=== PATIENT | male | born 1990 | race Caucasian/White ===

== ENCOUNTER 2016-04-11 17:16 | Inpatient (IN) | payer SELFPAY ==
[~2016-04-11] VITALS: Ht 165.1 cm; Wt 67.8 kg
[2016-04-11 17:19] VITALS: BP 133/75; PULSE 79; RESP 16; O2SAT 99
--- NOTE | 2016-04-11 17:28 | PD ---
HPI Chief Complaint: Fall Time Seen by Provider: 17:23 Travel History International Travel<30 days: No Contact w/Intl Traveler<30days: No Traveled to known affect area: No History of Present Illness HPI The patient is a 25-year-old a spinning male who presents to the emergency department via private vehicle for left lower extremity pain. The patient states he fell off a ladder, approximately 5 feet off the ground, landed on his left lower extremity. The patient thinks he fractured the left lower extremity. He is unable to bear weight on the left leg. The patient does note a deformity over the mid to distal one third of the left lower extremity. He denies any loss of consciousness, headache, neck pain, chest pain, shortness breath, nausea, vomiting, or abdominal pain with the fall. The patient's symptoms are moderate, exacerbated after falling, and there are no current alleviating factors. PFSH Past Medical History Medical History: Denies Significant Hx Hx Anticoagulant Therapy: No Cardiovascular Problems: No Chemotherapy: No Cerebrovascular Accident: No Diabetes: No Diminished Hearing: No Respiratory: No Tetanus Vaccination: Unknown ?: Not Past Surgical History Surgical History: No Previous Surgery Hysterectomy: No Social History Alcohol Use: No Tobacco Use: No Substance Use: No Allergies-Medications (Allergen,Severity, Reaction): Coded Allergies: No Known Allergies (Unverified , 04/11/16) Reported Meds & Prescriptions Reported Meds & Active Scripts Active No Active Prescriptions or Reported Medications Review of Systems Except as stated in HPI: all other systems reviewed are Neg HENT: No: Headaches, Lightheadedness, Neck Pain Cardiovascular: No: Chest Pain or Discomfort Respiratory: No: Shortness of Breath Gastrointestinal: No: Nausea, Vomiting, Abdominal Pain Musculoskeletal: Positive: Limited ROM, Pain Neurologic: No: Paresthesia, Sensory Disturbance Physical Exam Narrative GENERAL: Awake, alert, pleasant 25-year-old male SKIN: Warm and dry. HEAD: Atraumatic. Normocephalic. EYES: Pupils equal and round. No scleral icterus. No injection or drainage. ENT: No nasal bleeding or discharge. Mucous membranes pink and moist. NECK: Trachea midline. No JVD. No tenderness of the cervical vertebrae. CARDIOVASCULAR: Regular rate and rhythm. No murmur appreciated. RESPIRATORY: No accessory muscle use. Clear to auscultation. Breath sounds equal bilaterally. GASTROINTESTINAL: Abdomen soft, non-tender, nondistended. No rebound tenderness. MUSCULOSKELETAL: Deformity at the distal one half to distal one third of the left tibia/fibular. No tenderness over the proximal fibula or medial/lateral malleus. Positive left dorsalis pedal pulse. The patient is able to wiggle the toes of the left foot, but is unable to completely extend the left leg secondary to pain. NEUROLOGICAL: Awake and alert. No obvious cranial nerve deficits. Motor grossly within normal limits. Normal speech. PSYCHIATRIC: Appropriate mood and affect; insight and judgment normal. Data Data Last Documented VS Vital Signs Date Time Temp Pulse Resp B/P Pulse Ox O2 Delivery O2 Flow Rate FiO2 04/11/16 17:27 71 16 99 Room Air 04/11/16 17:19 133/75 Orders Complete Blood Count With Diff (04/11/16 17:24) Comprehensive Metabolic Panel (04/11/16 17:24) Electrocardiogram (04/11/16 ) Tibia/Fibula (Ap/Lat) (04/11/16 ) Chest, Single Ap (04/11/16 ) Type And Screen (04/11/16 17:24) Morphine Inj (Morphine Inj) (04/11/16 17:30) Ondansetron Inj (Zofran Inj) (04/11/16 17:30) Sodium Chlor 0.9% 1000 Ml Inj (Ns 1000 M (04/11/16 17:30) Splinting (04/11/16 ) Consult Orthopedic (04/11/16 ) Admit Order (Ed Use Only) (04/11/16 18:24) Labs Laboratory Tests Test 04/11/16 17:30 White Blood Count 6.1 TH/MM3 Red Blood Count 4.56 MIL/MM3 Hemoglobin 13.4 GM/DL Hematocrit 39.4 % Mean Corpuscular Volume 86.3 FL Mean Corpuscular Hemoglobin 29.4 PG Mean Corpuscular Hemoglobin 34.1 % Concent Red Cell Distribution Width 13.4 % Platelet Count 212 TH/MM3 Mean Platelet Volume 8.9 FL Neutrophils (%) (Auto) 54.7 % Lymphocytes (%) (Auto) 34.2 % Monocytes (%) (Auto) 7.0 % Eosinophils (%) (Auto) 3.5 % Basophils (%) (Auto) 0.6 % Neutrophils # (Auto) 3.3 TH/MM3 Lymphocytes # (Auto) 2.1 TH/MM3 Monocytes # (Auto) 0.4 TH/MM3 Eosinophils # (Auto) 0.2 TH/MM3 Basophils # (Auto) 0.0 TH/MM3 CBC Comment DIFF FINAL Differential Comment Sodium Level 143 MEQ/L Potassium Level 3.6 MEQ/L Chloride Level 107 MEQ/L Carbon Dioxide Level 29.6 MEQ/L Anion Gap 6 MEQ/L Blood Urea Nitrogen 12 MG/DL Creatinine 1.14 MG/DL Estimat Glomerular Filtration 78 ML/MIN Rate Random Glucose 98 MG/DL Calcium Level 8.8 MG/DL Total Bilirubin 0.5 MG/DL Aspartate Amino Transf 24 U/L (AST/SGOT) Alanine Aminotransferase 30 U/L (ALT/SGPT) Alkaline Phosphatase 64 U/L Total Protein 7.0 GM/DL Albumin 4.4 GM/DL Blood Type O POSITIVE Antibody Screen NEGATIVE Blood Bank Comment MDM Medical Decision Making Medical Screen Exam Complete: Yes Emergency Medical Condition: Yes Medical Record Reviewed: Yes Interpretation(s) EKG reveals normal sinus rhythm with a rate of 79. Left anterior fascicular block. Last Impressions Tibia/Fibula X-Ray 04/11/16 0000 Signed Impressions: Service Date/Time: March 17:45 - CONCLUSION: Acute comminuted displaced fractures involving the mid shafts of the left tibia and fibula. Vimal Nugent MD Chest X-Ray 04/11/16 0000 Signed Impressions: Service Date/Time: March 17:50 - CONCLUSION: No acute disease. Vimal Nugent MD Laboratory Tests Test 04/11/16 17:30 White Blood Count 6.1 TH/MM3 Red Blood Count 4.56 MIL/MM3 Hemoglobin 13.4 GM/DL Hematocrit 39.4 % Mean Corpuscular Volume 86.3 FL Mean Corpuscular Hemoglobin 29.4 PG Mean Corpuscular Hemoglobin 34.1 % Concent Red Cell Distribution Width 13.4 % Platelet Count 212 TH/MM3 Mean Platelet Volume 8.9 FL Neutrophils (%) (Auto) 54.7 % Lymphocytes (%) (Auto) 34.2 % Monocytes (%) (Auto) 7.0 % Eosinophils (%) (Auto) 3.5 % Basophils (%) (Auto) 0.6 % Neutrophils # (Auto) 3.3 TH/MM3 Lymphocytes # (Auto) 2.1 TH/MM3 Monocytes # (Auto) 0.4 TH/MM3 Eosinophils # (Auto) 0.2 TH/MM3 Basophils # (Auto) 0.0 TH/MM3 CBC Comment DIFF FINAL Differential Comment Sodium Level 143 MEQ/L Potassium Level 3.6 MEQ/L Chloride Level 107 MEQ/L Carbon Dioxide Level 29.6 MEQ/L Anion Gap 6 MEQ/L Blood Urea Nitrogen 12 MG/DL Creatinine 1.14 MG/DL Estimat Glomerular Filtration 78 ML/MIN Rate Random Glucose 98 MG/DL Calcium Level 8.8 MG/DL Total Bilirubin 0.5 MG/DL Aspartate Amino Transf 24 U/L (AST/SGOT) Alanine Aminotransferase 30 U/L (ALT/SGPT) Alkaline Phosphatase 64 U/L Total Protein 7.0 GM/DL Albumin 4.4 GM/DL Blood Type O POSITIVE Antibody Screen NEGATIVE Blood Bank Comment Differential Diagnosis Differential diagnosis includes fracture, dislocation, contusion, hematoma, sprain, compartment syndrome. Narrative Course IV was established, labs are drawn and sent, and the patient was placed on cardiac telemetry monitoring and continuous pulse oximetry monitoring. EKG was ordered and interpreted. Chest x-ray and x-ray left tibia/fibula were ordered. The patient was administered morphine, Zofran, and IV fluids. Long leg splint of the left lower extremity was ordered. I discussed the patient with Dr. Collins who agrees with admission to medical service, nothing by mouth after midnight. The patient was placed in a posterior long leg splint. Labs are unremarkable. I discussed it with Dr. Posada who agrees with admission. Physician Communication Physician Communication I discussed the patient with the on-call orthopedic surgeon, Dr. Collins. I discussed the patient Dr. López who agrees with admission. Admitting Information Admitting Physician Requests: Admit Scripts No Active Prescriptions or Reported Meds Condition: Stable Reji Vera MD Apr 11, 2016 17:28
[2016-04-11] MEDS ORDERED: ONDANSETRON HCL 4 MG/2 ML VIAL IV PUSH ONE (17:30)
[2016-04-11] MEDS ORDERED: SODIUM CHLOR 0.9% 1000 ML INJ 1,000 ML IV ONE (17:30)
[2016-04-11] MEDS ORDERED: MORPHINE SULFATE 4 MG/ML INJ IV PUSH ONE (17:30)
[2016-04-11 17:43] LABS: AUTOMATED NEUTROPHIL # 3.3 TH/MM3 (1.8-7.7); BASOPHIL % 0.6 % (0.0-2.0); EOSINOPHIL # 0.2 TH/MM3 (0-0.4); EOSINOPHIL % 3.5 % (0.0-4.0); HEMATOCRIT 39.4 % (39.0-51.0); HEMO FLAGS DIFF FINAL; LYMPH % 34.2 % (9.0-44.0); LYMPHOCYTE # 2.1 TH/MM3 (1.0-4.8); MEAN CELL VOLUME 86.3 FL (80.0-100.0); MEAN CORPUSCULAR HEMOGLOBIN 29.4 PG (27.0-34.0); MEAN CORPUSCULAR HGB CONC 34.1 % (32.0-36.0); NEUT % 54.7 % (16.0-70.0); PLATELET COUNT 212 TH/MM3 (150-450); RED BLOOD COUNT 4.56 MIL/MM3 (4.50-5.90); RED CELL DISTRIBUTION WIDTH 13.4 % (11.6-17.2); WHITE BLOOD COUNT 6.1 TH/MM3 (4.0-11.0)
--- NOTE | 2016-04-11 17:51 | RADRPT ---
EXAM DATE/TIME: 04/11/2016 17:50 [facility] COMPARISON: No previous studies available for comparison. INDICATIONS : Evaluate for trauma, fell MEDICAL HISTORY : None. SURGICAL HISTORY : None. ENCOUNTER: Initial ACUITY: 1 day PAIN SCORE: 0/10 LOCATION: Bilateral chest FINDINGS: A single view of the chest demonstrates the lungs to be symmetrically aerated without evidence of mas s, infiltrate or effusion. The cardiomediastinal contours are unremarkable. Osseous structures are intact. CONCLUSION: No acute disease. Vimal Nugent MD on April 11, 2016 at 17:49 Board Certified Radiologist. This report was verified electronically.
--- NOTE | 2016-04-11 17:54 | RADRPT ---
EXAM DATE/TIME: 04/11/2016 17:45 [facility] COMPARISON: No previous studies available for comparison. INDICATIONS : Left tibia pain, fell MEDICAL HISTORY : None. SURGICAL HISTORY : None. ENCOUNTER: Initial ACUITY: 1 day PAIN SCORE: 10/10 LOCATION: Left tibia FINDINGS: There are acute comminuted displaced fractures involving the mid shafts of the left tibia and fibula. CONCLUSION: Acute comminuted displaced fractures involving the mid shafts of the left tibia and fibula. Vimal Nugent MD on April 11, 2016 at 17:48 Board Certified Radiologist. This report was verified electronically.
[2016-04-11 18:07] LABS: ALT (GPT) 30 U/L (12-78); ANION GAP 6 MEQ/L (5-15); AST (GOT) 24 U/L (15-37); BICARBONATE 29.6 MEQ/L (21.0-32.0); BLOOD UREA NITROGEN 12 MG/DL (7-18); CHLORIDE 107 MEQ/L (98-107); GLOMERULAR FILTRATION RATE 78 ML/MIN (>89); POTASSIUM 3.6 MEQ/L (3.5-5.1); SODIUM (NA) 143 MEQ/L (136-145)
[2016-04-11 18:10] LABS: ALKALINE PHOSPHATASE 64 U/L (45-117); TOTAL BILIRUBIN ADULT 0.5 MG/DL (0.2-1.0)
--- NOTE | 2016-04-11 18:40 | HHI.HP ---
[facility] Diagnosis Diagnoses: Chief Complaint: Fell from ladder and hurt left ankle Travel History International Travel<30 Days: No Contact w/Intl Traveler <30 Da: No Traveled to Known Affected Are: No History of Present Illness This is a 25-year-old male patient who has no prior medical history and is otherwise healthy with proximally 5 feet off the ground on a ladder and fell landing on his left ankle. Patient reported at that time he had severe left ankle pain and unable to bear weight presents to the emergency department for further evaluation and treatment. Tibia/fibula X-ray- Acute comminuted displaced fractures involving the mid shafts of the left tibia and fibula. Patient has had pain medication and emergency department and reports minimal pain at this time. Patient denies chest pain shortness of breath nausea vomiting diarrhea, patient fevers or chills. Review of Systems Other All Other systems reviewed and negative except as mentioned in history of present illness Past Family Social History Past Medical History Denies Past Surgical History Denies Reported Medications Does not take any medications on a regular basis Allergies: Coded Allergies: No Known Allergies (Unverified , 04/11/16) Active Ordered Medications Current Medications Medications (Trade) Dose Ordered Sig/Aracelis Route Start Time Stop Time Status Last Admin (NS 1000 ml Inj) 1,000 ml @ 999 mls/hr BOLUS ONCE IV 04/11/16 17:30 04/11/16 18:30 04/11/16 17:54 Family History Reports mother and father both alive and healthy no family medical history Social History He denies EtOH use tobacco use or illicit drug use Physical Exam Vital Signs Vital Signs Date Time Temp Pulse Resp B/P Pulse Ox O2 Delivery O2 Flow Rate FiO2 04/11/16 17:27 71 16 99 Room Air 04/11/16 17:19 79 16 133/75 99 Physical Exam GENERAL: This is a well-nourished, well-developed patient, left lower extremity deformed edematous with ecchymosis present SKIN: Left lower extremity deformed edematous with ecchymosis present HEAD: Atraumatic. Normocephalic. No temporal or scalp tenderness. EYES: Extraocular motions intact. No scleral icterus. No injection or drainage. ENT: Nose without bleeding, purulent drainage or septal hematoma. Throat without erythema, tonsillar hypertrophy or exudate. Uvula midline. Airway patent. NECK: Trachea midline. No JVD or lymphadenopathy. Supple, nontender, no meningeal signs. CARDIOVASCULAR: Regular rate and rhythm without murmurs, gallops, or rubs. RESPIRATORY: Clear to auscultation. Breath sounds equal bilaterally. No wheezes , rales, or rhonchi. GASTROINTESTINAL: Abdomen soft, non-tender, nondistended. No guarding. MUSCULOSKELETAL: 5 out of 5 with full range of motion bilateral upper shoulders and right lower extremity. Left lower extremity deformed edematous with ecchymosis present NEUROLOGICAL: Awake and alert. Motor and sensory grossly within normal limits. Five out of 5 muscle strength in all muscle groups, with the exception of left lower extreme A secondary to pain. Normal speech. Laboratory Laboratory Tests Test 04/11/16 17:30 White Blood Count 6.1 Red Blood Count 4.56 Hemoglobin 13.4 Hematocrit 39.4 Mean Corpuscular Volume 86.3 Mean Corpuscular Hemoglobin 29.4 Mean Corpuscular Hemoglobin 34.1 Concent Red Cell Distribution Width 13.4 Platelet Count 212 Mean Platelet Volume 8.9 Neutrophils (%) (Auto) 54.7 Lymphocytes (%) (Auto) 34.2 Monocytes (%) (Auto) 7.0 Eosinophils (%) (Auto) 3.5 Basophils (%) (Auto) 0.6 Neutrophils # (Auto) 3.3 Lymphocytes # (Auto) 2.1 Monocytes # (Auto) 0.4 Eosinophils # (Auto) 0.2 Basophils # (Auto) 0.0 CBC Comment DIFF FINAL Differential Comment Sodium Level 143 Potassium Level 3.6 Chloride Level 107 Carbon Dioxide Level 29.6 Anion Gap 6 Blood Urea Nitrogen 12 Creatinine 1.14 Estimat Glomerular Filtration 78 Rate Random Glucose 98 Calcium Level 8.8 Total Bilirubin 0.5 Aspartate Amino Transf 24 (AST/SGOT) Alanine Aminotransferase 30 (ALT/SGPT) Alkaline Phosphatase 64 Total Protein 7.0 Albumin 4.4 Blood Type O POSITIVE Antibody Screen NEGATIVE Blood Bank Comment Result Diagram: 04/11/16 1730 04/11/16 1730 Imaging Last Impressions Tibia/Fibula X-Ray 04/11/16 0000 Signed Impressions: Service Date/Time: March 17:45 - CONCLUSION: Acute comminuted displaced fractures involving the mid shafts of the left tibia and fibula. Vimal Nugent MD Chest X-Ray 04/11/16 0000 Signed Impressions: Service Date/Time: March 17:50 - CONCLUSION: No acute disease. Vimal Nugent MD Assessment and Plan Problem List: (1) Closed left tibial fracture ICD Code: S82.202A Status: Acute Assessment and Plan This is a 25-year-old male patient who has no prior medical history and is otherwise healthy with proximally 5 feet off the ground on a ladder and fell landing on his left ankle. Patient reported at that time he had severe left ankle pain and unable to bear weight presents to the emergency department for further evaluation and treatment. Tibia/fibula X-ray- Acute comminuted displaced fractures involving the mid shafts of the left tibia and fibula. Comminuted displaced fractures involving the mid shafts of the left tibia and fibula Morphine 3 mg every 4 hours as needed for pain [place] 5 mg every 4 hours as needed for pain Consults to orthopedic surgery- year provider spoke with Dr. Medrano, nothing by mouth after midnight planned surgical intervention a.m. DVT prophylaxis per surgery CBC reviewed within normal limits, CMP pending Discussed plan of care with ER provider, RN, patient and brother who is at bedside Written by Dali Brown, acting as scribe for Dr. López on 04/11/16 at 18:40. The documentation accurately reflects the work performed [id number] by me on at18:40 . Code Status Full code Discussed Condition With Patient, ED physician Physician Certification 2 Midnight Certification Type: Admission for Inpatient Services Order for Inpatient Services The services are ordered in accordance with Medicare regulations or non- Medicare payer requirements, as applicable. In the case of services not specified as inpatient-only, they are appropriately provided as inpatient services in accordance with the 2-midnight benchmark. Estimated LOS (days): 2 days is the estimated time the patient will need to remain in the hospital, assuming treatment plan goals are met and no additional complications. Post-Hospital Plan: Not yet determined Dali Brown Apr 11, 2016 18:40 Jas López MD Apr 11, 2016 19:09
[2016-04-11] MEDS ORDERED: ACETAMINOPHEN 325 MG TAB PO PRN (18:45)
[2016-04-11] MEDS ORDERED: MAGNESIUM HYDROXIDE SUSP 30 ML CUP PO PRN (18:45)
[2016-04-11] MEDS ORDERED: NALOXONE HCL 0.4 MG/ML AMP IV PRN (18:45)
[2016-04-11] MEDS ORDERED: ONDANSETRON HCL 4 MG/2 ML VIAL IVP PRN (18:45)
[2016-04-11] MEDS ORDERED: ACETAMINOPHEN/HYDROcodone 325 MG/5 MG TAB PO PRN (18:45)
[2016-04-11] MEDS ORDERED: SODIUM CHLORIDE 0.9% FLUSH 5 ML FLUSH FLUSH PRN (18:45)
[2016-04-11 19:00] VITALS: BP 121/72; PULSE 76; RESP 16; O2SAT 98
[2016-04-11 20:45] VITALS: BP 123/77; PULSE 79; RESP 16; TEMP 97.3; O2SAT 98
[2016-04-11] MEDS: DOCUSATE SODIUM 100 MG CAP PO SCH (22:27)
[2016-04-11] MEDS: SODIUM CHLORIDE 0.9% FLUSH 5 ML FLUSH FLUSH SCH (22:28)
[2016-04-11] MEDS: MORPHINE SULFATE 4 MG/ML INJ IV PUSH PRN (22:28)
[2016-04-11] MEDS ORDERED: SODIUM CHLOR 0.9% 1000 ML INJ 1,000 ML IV SCH (23:30)
[2016-04-12] VITALS: BP 113/74; PULSE 61; RESP 16; TEMP 96.7; O2SAT 98
[2016-04-12] MEDS: MORPHINE SULFATE 4 MG/ML INJ IV PUSH PRN ×2 (02:56→09:18)
[2016-04-12 06:12] LABS: ALKALINE PHOSPHATASE 55 U/L (45-117); ALT (GPT) 26 U/L (12-78); ANION GAP 7 MEQ/L (5-15); AST (GOT) 17 U/L (15-37); BLOOD UREA NITROGEN 8 MG/DL (7-18); CHLORIDE 105 MEQ/L (98-107); GLOMERULAR FILTRATION RATE 105 ML/MIN (>89); POTASSIUM 3.7 MEQ/L (3.5-5.1); SODIUM (NA) 142 MEQ/L (136-145); TOTAL BILIRUBIN ADULT 0.7 MG/DL (0.2-1.0)
--- NOTE | 2016-04-12 06:55 | PD.ORT.PN ---
Subjective Subjective Remarks Fall from ladder approximately 5 foot. Was helping friend clean house. Complaints of left leg pain with deformity of tibia. No other complaints Objective Vitals Vital Signs Date Time Temp Pulse Resp B/P Pulse Ox O2 Delivery O2 Flow Rate FiO2 04/12/16 00:00 96.7 61 16 113/74 98 04/11/16 20:45 97.3 79 16 123/77 98 04/11/16 19:00 76 16 121/72 98 Room Air 04/11/16 17:27 71 16 99 Room Air 04/11/16 17:19 79 16 133/75 99 I/O 04/11/16 04/11/16 04/11/16 04/12/16 04/12/16 04/12/16 07:00 15:00 23:00 07:00 15:00 23:00 Intake Total 240 ml 0 ml Output Total 350 ml 300 ml Balance -110 ml -300 ml Intake Oral 240 ml 0 ml Output Urine Total 350 ml 300 ml # Voids 1 # Bowel Movements 0 0 Result Diagram: 04/11/16 1730 04/12/16 0459 Imaging Last 72 hours Impressions Tibia/Fibula X-Ray 04/11/16 0000 Signed Impressions: Service Date/Time: March 17:45 - CONCLUSION: Acute comminuted displaced fractures involving the mid shafts of the left tibia and fibula. Vimal Nugent MD Chest X-Ray 04/11/16 0000 Signed Impressions: Service Date/Time: March 17:50 - CONCLUSION: No acute disease. Vimal Nugent MD Objective Remarks Bilateral upper extremities: Full range of motion and neurovascularly intact Right lower extremity: Full range of motion and neurovascularly intact Left lower extremity: No pain with hip or knee range of motion. Splint intact. Distally intact sensation with good capillary refills Assessment & Plan Assessment and Plan Left tibia shaft fracture Nothing by mouth Surgery this morning with Dr. Devries with IM nail Sign consents SOCO LORENZANA PA-C Apr 12, 2016 06:55
[2016-04-12] MEDS: DOCUSATE SODIUM 100 MG CAP PO SCH ×2 (08:00→20:08)
[2016-04-12 08:02] VITALS: BP 112/69; PULSE 71; RESP 18; TEMP 97.6; O2SAT 98
[2016-04-12] MEDS ORDERED: VANCOMYCIN HCL 1000 MG VIAL ONE (08:12)
[2016-04-12] MEDS ORDERED: GENTAMICIN SULFATE 80 MG/2 ML VIAL ONE (08:12)
[2016-04-12] MEDS ORDERED: SODIUM CHLOR 0.9% 250 ML INJ 250 ML ONE (08:12)
[2016-04-12] MEDS ORDERED: ceFAZolin INJ 1,000 MG VIAL ONE (08:12)
--- NOTE | 2016-04-12 08:41 | HHI.PR ---
Subjective Remarks Follow-up left tibial shaft fracture 04/12/16-patient seen and examined, status post IM nail left tibia fracture. Currently pain control and denies any chest pain or shortness of breath. Objective Vitals Vital Signs Date Time Temp Pulse Resp B/P Pulse Ox O2 Delivery O2 Flow Rate FiO2 04/12/16 00:00 96.7 61 16 113/74 98 04/11/16 20:45 97.3 79 16 123/77 98 04/11/16 19:00 76 16 121/72 98 Room Air 04/11/16 17:27 71 16 99 Room Air 04/11/16 17:19 79 16 133/75 99 I/O 04/11/16 04/11/16 04/11/16 04/12/16 04/12/16 04/12/16 07:00 15:00 23:00 07:00 15:00 23:00 Intake Total 240 ml 0 ml Output Total 350 ml 300 ml Balance -110 ml -300 ml Intake Oral 240 ml 0 ml Output Urine Total 350 ml 300 ml # Voids 1 # Bowel Movements 0 0 Result Diagram: 04/11/16 1730 04/12/16 0459 Imaging Last Impressions Tibia/Fibula X-Ray 04/11/16 0000 Signed Impressions: Service Date/Time: March 17:45 - CONCLUSION: Acute comminuted displaced fractures involving the mid shafts of the left tibia and fibula. Vimal Nugent MD Chest X-Ray 04/11/16 0000 Signed Impressions: Service Date/Time: March 17:50 - CONCLUSION: No acute disease. Vimal Nugent MD Objective Remarks GENERAL: NAD SKIN: Warm and dry. HEAD: Normocephalic. EYES: No scleral icterus. No injection or drainage. NECK: Supple, trachea midline. No JVD or lymphadenopathy. CARDIOVASCULAR: Regular rate and rhythm without murmurs, gallops, or rubs. RESPIRATORY: Breath sounds equal bilaterally. No accessory muscle use. GASTROINTESTINAL: Abdomen soft, non-tender, nondistended. MUSCULOSKELETAL: No cyanosis, or edema. s/p left tibia fracture repair; dressing intact BACK: Nontender without obvious deformity. No CVA tenderness. A/P Problem List: (1) Closed left tibial fracture ICD Code: S82. Status: Acute Assessment and Plan 25-year-old male with Comminuted displaced fractures involving the mid shafts of the left tibia and fibula: s/p left tibial shaft repair IM nail. Management per orthopedic surgery and continue current postop care with pain management. PT to treat and eval. Incentive spirometry at bedside. DVT prophylaxis per surgery Jas López MD Apr 12, 2016 08:41 Jas López MD Apr 12, 2016 08:41
[2016-04-12] MEDS ORDERED: ALUMINUM/MAGNESIUM/SIMETH 30 ML CUP PO PRN (08:45)
[2016-04-12] MEDS ORDERED: ACETAMINOPHEN 325 MG TAB PO PRN (08:45)
[2016-04-12] MEDS ORDERED: DOCUSATE SODIUM 50 MG/SENNA 8.6 MG TAB PO PRN (08:45)
[2016-04-12] MEDS ORDERED: TEMAZEPAM 15 MG CAP PO PRN (08:45)
[2016-04-12] MEDS: SODIUM CHLORIDE 0.9% FLUSH 5 ML FLUSH FLUSH SCH ×2 (09:00→20:08)
[2016-04-12 09:43] VITALS: O2SAT 97
--- NOTE | 2016-04-12 09:44 | MB ---
cc: PHIL SANDOVAL TODD DATE OF CONSULTATION: 04/12/2016 REASON FOR CONSULTATION Left tibia fracture. CONSULTING PHYSICIAN Dr. Sandoval. HISTORY Tomas is a 25-year-old male who was on a ladder, he was approximately 5 feet high. He had a fall. He landed on his left side. He had immediate left leg pain. He is unable to stand or ambulate. He presented emergency room where x-rays revealed a displaced left tibia-fibula shaft fracture. He is currently awake and alert on the sixth floor. His only complaint is left leg. He had no dizziness, syncope or loss of consciousness. PAST MEDICAL HISTORY/ILLNESSES: None. PAST SURGICAL HISTORY: None. MEDICATIONS: None. FAMILY HISTORY: Noncontributory. His parents are alive and healthy. SOCIAL HISTORY: The patient denies alcohol, tobacco or drug use. REVIEW OF SYSTEMS The patient denies headache, visual changes, neck pain, chest pain, shortness of breath, abdominal pain, nausea and vomiting, recent weight loss. He complains of the left leg pain. PHYSICAL EXAMINATION: IN GENERAL: The patient is a well-developed, well-nourished 25 year-old male in no acute distress. He is awake and alert, he is alert and oriented times three. VITAL SIGNS: Temperature 96.7. Pulse 61, respirations 16, blood pressure 113/74. O2 saturations is 98% on room air. HEAD, EYES, EARS, NOSE, AND THROAT: Head, normocephalic, pupils are equal. NECK: The neck is soft, nontender, trachea is midline. ABDOMEN: The abdomen is soft, nontender, nondistended. EXTREMITIES: Examination of the bilateral upper extremities reveals no pain with shoulder, elbow or wrist motion bilaterally, radial pulses are palpable. Skin is intact to both hands. He has +5 firer watertender strength bilaterally. Sensation is intact in the radial, ulnar and median nerve distributions bilaterally. Examination of the right leg reveals no pain with hip, knee or ankle motion. The skin is intact. Dorsalis pedis pulses are palpable. The sensation is intact to the right foot. Examination of the left leg reveals no tenderness around his hip or knee, he is diffusely tender around the mid tibia, there is mild swelling present. Skin is intact. Compartments are soft of the left calf. Dorsalis pedis pulses palpable. He has minimal pain with passive range of motion of his toes. RADIOLOGIC: X-rays of the left tibia were reviewed. The x-rays revealed a displaced left tibia and fibula mid shaft fracture. IMPRESSION: Displaced left tibia and fibula fractures. PLAN: Treatment options were discussed with the patient. At this point I would recommend reduction internal medullary fixation of the left tibia. The risks of the surgery include, bleeding, infection, injuries to arteries, nerves and blood vessels, nonunion, malunion, painful hardware, compartment syndrome as well medical complications including blood clots, and future complications. All questions were answered. I will plan on surgery today. A mid-level provider in my office, nurse practitioner or PA, may see this patient on a follow-up basis and continue to implement the objective of this plan including: Starting or adjusting medications, injections of muscle, tendon, bursa or joints, cast application, orthotic or brace application, physical therapy, further radiographic studies including x-ray, MRI, CT, ultrasounds or bone scan, vascular studies, neurologic studies, or other specialist consultations, and proceeding with surgical management as appropriate. MD JUDIE Weiss/yuliana /9:23 AM /10:03 AM REHAN
[2016-04-12] MEDS ORDERED: PHENYLEPH/NS 1000 MCG/10 ML SYR IV ONE (09:54)
[2016-04-12] MEDS ORDERED: PROPOFOL 200 MG/20 ML AMP IV ONE (09:54)
[2016-04-12] MEDS ORDERED: ONDANSETRON HCL 4 MG/2 ML VIAL IV PUSH ONE (09:54)
[2016-04-12] MEDS ORDERED: ePHEDrine/NS 50 MG/5 ML SYR IV ONE (09:54)
[2016-04-12] MEDS ORDERED: INFLUENZA VIRUS VACCINE (QUADRIVALENT) 0.5 ML SYR IM ONE (10:00)
[2016-04-12] MEDS ORDERED: WALKER/ADULT/FO1 MIS (10:15)
[2016-04-12] MEDS ORDERED: HYDR-3288 PO (10:15)
[2016-04-12] MEDS ORDERED: XARE10TA PO (10:15)
[2016-04-12] MEDS ORDERED: MIDAZOLAM HCL 2 MG/2 ML VIAL ONE (10:16)
[2016-04-12] MEDS ORDERED: fentaNYL CITRATE 250 MCG/5 ML AMP ONE (10:16)
[2016-04-12] MEDS ORDERED: ACETAMINOPHEN 1000 MG/100 ML VIAL IV ONE (10:19)
--- NOTE | 2016-04-12 11:39 | PD.ORT.PN ---
Subjective Subjective Remarks Postoperative day 0 status post left tibia IM nail Objective Vitals Vital Signs Date Time Temp Pulse Resp B/P Pulse Ox O2 Delivery O2 Flow Rate FiO2 04/12/16 09:43 97 04/12/16 08:02 97.6 71 18 112/69 98 04/12/16 00:00 96.7 61 16 113/74 98 04/11/16 20:45 97.3 79 16 123/77 98 04/11/16 19:00 76 16 121/72 98 Room Air 04/11/16 17:27 71 16 99 Room Air 04/11/16 17:19 79 16 133/75 99 I/O 04/11/16 04/11/16 04/11/16 04/12/16 04/12/16 04/12/16 07:00 15:00 23:00 07:00 15:00 23:00 Intake Total 240 ml 0 ml Output Total 350 ml 300 ml Balance -110 ml -300 ml Intake Oral 240 ml 0 ml Output Urine Total 350 ml 300 ml # Voids 1 # Bowel Movements 0 0 Result Diagram: 04/11/16 1730 04/12/16 0459 Imaging Last 72 hours Impressions Tibia/Fibula X-Ray 04/11/16 0000 Signed Impressions: Service Date/Time: March 17:45 - CONCLUSION: Acute comminuted displaced fractures involving the mid shafts of the left tibia and fibula. Vimal Nugent MD Chest X-Ray 04/11/16 0000 Signed Impressions: Service Date/Time: March 17:50 - CONCLUSION: No acute disease. Vimal Nugent MD Objective Remarks Bilateral upper extremities: Full range of motion and neurovascularly intact Right lower extremity: Full range of motion and neurovascularly intact Left lower extremity: Splint intact. Distally intact sensation with good capillary refills. Compartments soft Assessment & Plan Assessment and Plan Left tibia shaft fracture--status post IM nail Toe-touch weightbearing Xarelto Elevate and ice Discharge home Friday or Friday Gilmer Devries MD Apr 12, 2016 11:39
--- NOTE | 2016-04-12 11:40 | PD.OP ---
cc: Gilmer Bradley MD Operative Report Date of Surgery: Apr 12, 2016 Preoperative Diagnosis: Left tibia shaft fracture Postoperative Diagnosis: Procedure: Left tibia reduction and intramedullary nail fixation Anesthesia: Gen. Surgeon: Gilmer Bradley Chisel Mortiser Operator(s): EPI Hall PA-C The surgical procedure was assisted by my physician customer relations assistant. My P.A. presence was necessary throughout this case for the manipulation and positioning of the surgical extremity. My P.A. was assisting me throughout the duration of this procedure. The skill set of a physician customer relations assistant was medically necessary to complete this procedure. During the surgical case the install and repair technician was working at the back table and the physician customer relations assistant was directly assisting me. Operation and Findings: Implants: synthes [300]mm x [10]mm tibial nail Plan of activity: Toe-touch weightbearing Patient was seen and examined preoperatively. An informed consent was obtained from patient after detailed discussion of risk and benefits. Risks of surgery include bleeding, infection, painful hardware, nonunion, malunion, leg length discrepancy, need for hardware removal, and medical complications associated with anesthesia including blood clots, stroke, heart attack, and were discussed. Operative site was marked. Patient was brought to the operating room placed on or table. Patient received IV antibiotics and was given IV sedation GETA. Operative leg was prepped with alcohol Hibiclens and draped in usual sterile fashion. Timeout procedure was performed Procedure began with reduction of fracture. 2 small incisions were made around the fracture site. A percutaneous clamp was placed. Traction was applied. Fracture was reduced. There was comminution of the fracture. The fracture reduced and excellent alignment was achieved. Fracture clamp was used to aid in reduction. Next a 3 cm incision was made proximal to the patella. Quadriceps tendon was split in line with fibers. Cannulas were placed in the patellofemoral joint to protect the articular surface at all times. A guidepin was placed into the tibia and advanced in the tibial canal. Fluoroscopy was used to confirm appropriate guidepin placement. An opening reamer was used to open the tibial canal. A ball-tipped guidewire was advanced down the tibial canal. Guidepin was passed across the fracture site into the center of the distal tibia. Fluoroscopy confirmed guidepin placement. The nail length was now measured. The fracture was now held in a reduced position and the canal was reamed. The canal was reamed up to appropriate size. A Synthes nail was now selected. Next the nail was fully seated. Using perfect little shell tribe technique 2 distal interlocking screws were placed. Using the insertion handle as a guide 2 proximal interlocking screws were placed. Fluoroscopy confirmed excellent of fracture with well-placed hardware. Incisions and the knee joint were thoroughly irrigated with sterile saline. Fascia was closed with #1 Vicryl , subcutaneous tissues closed with 3-0 Vicryl and skin was closed with judy sterile dressings were applied patient was awakened and transferred to recovery in stable condition. Gilmer Bradley MD Apr 12, 2016 11:40
[2016-04-12] MEDS ORDERED: diphenhydrAMINE HCL 25 MG CAP PO PRN (11:45)
[2016-04-12] MEDS ORDERED: ONDANSETRON HCL 4 MG/2 ML VIAL IVP PRN (11:45)
[2016-04-12] MEDS ORDERED: MORPHINE SULFATE 4 MG/ML INJ IV PUSH PRN (11:45)
[2016-04-12] MEDS ORDERED: ACETAMINOPHEN/HYDROcodone 325 MG/10 MG TAB PO PRN (11:45)
[2016-04-12] MEDS ORDERED: *MEPERIDINE 25 MG INJ VIAL PERIprocedural Use ONLY ONE (12:07)
[2016-04-12] MEDS ORDERED: DO NOT ADM ANY ANTICOAGULANT DRUGS XX PRN (12:15)
[2016-04-12] MEDS: LACTATED RINGER'S 1000 ML INJ 1,000 ML IV SCH ×2 (12:20→21:48)
--- NOTE | 2016-04-12 13:45 | RADRPT ---
EXAM DATE/TIME: 04/12/2016 11:32 [facility] COMPARISON: TIBIA/FIBULA LEFT (AP/LAT), April 11, 2016, 17:45. INDICATIONS: ORIF Left tibia IM nail. MEDICAL HISTORY: None. SURGICAL HISTORY: None. ENCOUNTER: Subsequent ACUITY: 2 days PAIN SCORE: Non-responsive. LOCATION: Left Tibia FINDINGS: The patient is status post ORIF of left mid tibial fracture. Fracture fragments are well-aligned. I ntramedullary nail appears to be in good position. Comminuted fracture involving the mid fibula is s table. CONCLUSION: 1. Status post ORIF of left mid tibial fracture with intramedullary nail in good position and fractu re fragments adequately aligned. 2. Stable mid fibular comminuted fracture. Vimal Nugent MD on April 12, 2016 at 13:15 Board Certified Radiologist. This report was verified electronically.
[2016-04-12] MEDS: KETOROLAC TROMETHAMINE 30 MG/ML (IVP) VIAL IVP SCH ×2 (13:58→21:44)
[2016-04-12] MEDS: ACETAMINOPHEN/HYDROcodone 325 MG/10 MG TAB PO PRN ×3 (13:59→21:45)
[2016-04-12] MEDS: ceFAZolin 2 GM PREMIX 50 ML IV SCH ×2 (15:00→21:44)
[2016-04-12 16:00] VITALS: BP 109/65; PULSE 70; RESP 16; TEMP 97.1; O2SAT 99
--- NOTE | 2016-04-12 17:53 | EKG ---
Date Performed: 04/11/2016 Time Performed: 17:52:23 PTAGE: 25 years EKG: Sinus rhythm S1-S2-S3 PATTERN, CONSISTENT WITH PULMONARY DISEASE, RVH, OR NORMAL VARIANT LEFT ANTERIOR FASCICULAR BLOCK ABNORMAL ECG NO PREVIOUS TRACING DOCTOR: Yodit Evans Interpretating Date/Time 04/12/2016 17:52:54
[2016-04-12 20:00] VITALS: BP 104/63; PULSE 79; RESP 16; TEMP 97.6; O2SAT 100
[2016-04-12 23:02] VITALS: O2SAT 98
[2016-04-13] VITALS: BP 107/57; PULSE 72; RESP 16; TEMP 96; O2SAT 98
[2016-04-13 04:00] VITALS: BP 95/50; PULSE 68; RESP 18; TEMP 97.5; O2SAT 100
[2016-04-13] MEDS: KETOROLAC TROMETHAMINE 30 MG/ML (IVP) VIAL IVP SCH (05:32)
[2016-04-13] MEDS: ceFAZolin 2 GM PREMIX 50 ML IV SCH (05:32)
[2016-04-13] MEDS: LACTATED RINGER'S 1000 ML INJ 1,000 ML IV SCH (07:35)
[2016-04-13 08:00] VITALS: BP 101/56; PULSE 75; RESP 20; TEMP 96.1; O2SAT 98
[2016-04-13] MEDS: DOCUSATE SODIUM 100 MG CAP PO SCH (08:17)
[2016-04-13] MEDS: SODIUM CHLORIDE 0.9% FLUSH 5 ML FLUSH FLUSH SCH (08:18)
--- NOTE | 2016-04-13 09:13 | HHI.PR ---
Subjective Remarks Follow-up left tibial shaft fracture 04/12/16-patient seen and examined, status post IM nail left tibia fracture. Currently pain control and denies any chest pain or shortness of breath. 04/13/16-patient seen and examined, report improvement of left lower extremity pain. Currently afebrile. Objective Vitals Vital Signs Date Time Temp Pulse Resp B/P Pulse Ox O2 Delivery O2 Flow Rate FiO2 04/13/16 04:00 97.5 68 18 95/50 100 04/13/16 00:00 96.0 72 16 107/57 98 04/12/16 23:02 98 21 04/12/16 20:00 97.6 79 16 104/63 100 04/12/16 16:00 97.1 70 16 109/65 99 04/12/16 12:55 97.7 62 15 121/70 99 Nasal Cannula 2 04/12/16 12:45 60 15 121/70 96 Nasal Cannula 2 04/12/16 12:30 63 15 116/70 96 Nasal Cannula 3 04/12/16 12:15 69 15 112/60 96 Nasal Cannula 3 04/12/16 12:05 97.5 89 15 123/70 98 Nasal Cannula 3 04/12/16 09:43 97 I/O 04/12/16 04/12/16 04/12/16 04/13/16 04/13/16 04/13/16 07:00 15:00 23:00 07:00 15:00 23:00 Intake Total 0 ml 1140 ml 1176 ml 526 ml Output Total 300 ml 200 ml 650 ml Balance -300 ml 940 ml 1176 ml -124 ml Intake Oral 0 ml 240 ml 240 ml 240 ml IV Total 100 ml 936 ml 286 ml Other 800 ml Output Urine Total 300 ml 650 ml Estimated Blood Loss 200 ml # Voids 1 3 3 # Bowel Movements 0 2 0 Result Diagram: 04/11/16 1730 04/12/16 0459 Objective Remarks GENERAL: NAD SKIN: Warm and dry. HEAD: Normocephalic. EYES: No scleral icterus. No injection or drainage. NECK: Supple, trachea midline. No JVD or lymphadenopathy. CARDIOVASCULAR: Regular rate and rhythm without murmurs, gallops, or rubs. RESPIRATORY: Breath sounds equal bilaterally. No accessory muscle use. GASTROINTESTINAL: Abdomen soft, non-tender, nondistended. MUSCULOSKELETAL: No cyanosis, or edema. s/p left tibia fracture repair; dressing intact BACK: Nontender without obvious deformity. No CVA tenderness. Procedures Status post Left tibia reduction and intramedullary nail fixation 04/12/16 A/P Problem List: (1) Closed left tibial fracture ICD Code: S82.202A Status: Acute Assessment and Plan 25-year-old male with Comminuted displaced fractures involving the mid shafts of the left tibia and fibula: Status post Left tibia reduction and intramedullary nail fixation . Management per orthopedic surgery and continue current postop care with pain management. PT to treat and eval. Incentive spirometry at bedside. DVT prophylaxis per surgery Discharged home pending orthopedic surgery Jas López MD Apr 13, 2016 09:13
[2016-04-13] MEDS ORDERED: INFLUENZA VIRUS VACCINE (QUADRIVALENT) 0.5 ML SYR IM ONE (10:00)
[2016-04-13 10:22] VITALS: O2SAT 96
[2016-04-13] MEDS ORDERED: RIVAROXABAN 10 MG TAB PO SCH (11:00)
[2016-04-13 12:00] VITALS: BP 105/58; PULSE 82; RESP 20; TEMP 97.8; O2SAT 100
[2016-04-13] MEDS ORDERED: SENN1TAB PO (12:40)
--- NOTE | 2016-04-13 12:44 | HHI.DS ---
Discharge Summary Admission Date Apr 11, 2016 at 18:26 Discharge Date: Apr 13, 2016 Admitting Diagnosis (1) Closed left tibial fracture ICD Code: S82.202A Procedures Status post Left tibia reduction and intramedullary nail fixation 04/12/16 Brief History - From Admission This is a 25-year-old male patient who has no prior medical history and is otherwise healthy with proximally 5 feet off the ground on a ladder and fell landing on his left ankle. Patient reported at that time he had severe left ankle pain and unable to bear weight presents to the emergency department for further evaluation and treatment. Tibia/fibula X-ray- Acute comminuted displaced fractures involving the mid shafts of the left tibia and fibula. Patient has had pain medication and emergency department and reports minimal pain at this time. Patient denies chest pain shortness of breath nausea vomiting diarrhea, patient fevers or chills. CBC/BMP: 04/11/16 1730 04/12/16 0459 Significant Findings Laboratory Tests Test 04/11/16 04/12/16 17:30 04:59 Estimat Glomerular Filtration 78 ML/MIN (>89) Rate Calcium Level 8.0 MG/DL (8.5-10.1) Total Protein 6.2 GM/DL (6.4-8.2) Imaging Last Impressions Tibia/Fibula X-Ray 04/12/16 0000 Signed Impressions: Service Date/Time: Tuesday, April 12, 2016 11:32 - CONCLUSION: 1. Status post ORIF of left mid tibial fracture with intramedullary nail in good position and fracture fragments adequately aligned. 2. Stable mid fibular comminuted fracture. Vimal Nugent MD Chest X-Ray 04/11/16 0000 Signed Impressions: Service Date/Time: March 17:50 - CONCLUSION: No acute disease. Vimal Nugent MD PE at Discharge GENERAL: NAD SKIN: Warm and dry. HEAD: Normocephalic. EYES: No scleral icterus. No injection or drainage. NECK: Supple, trachea midline. No JVD or lymphadenopathy. CARDIOVASCULAR: Regular rate and rhythm without murmurs, gallops, or rubs. RESPIRATORY: Breath sounds equal bilaterally. No accessory muscle use. GASTROINTESTINAL: Abdomen soft, non-tender, nondistended. MUSCULOSKELETAL: No cyanosis, or edema. s/p left tibia fracture repair; dressing intact BACK: Nontender without obvious deformity. No CVA tenderness. Hospital Course Patient underwent left tibia reduction and intramedullary nail fixation on 04/12 by orthopedic surgery. Postoperatively he was treated with IV antibiotics which was subsequently discontinued and IV and by mouth narcotics. PT was consulted. DVT prophylaxis was provided. Vitals were monitored and patient remained stable prior to discharge Pt Condition on Discharge: Stable Discharge Disposition: Discharge Home Discharge Time: <= 30 minutes Discharge Instructions DIET: Follow Instructions for: Heart Healthy Diet Activities you can perform: Toe Touch Weight Bearing Follow up Referrals: Orthopedics - 04/26/16 @ [facility] with Gilmer Devries MD PCP Follow-up - 1 Week New Medications: Hydrocodone-Acetaminophen ([place]) 7.5-325 mg Tab 1 TAB PO Q4H PRN PAIN #60 Ref 0 TAB Rivaroxaban (Xarelto) 10 Mg Tab 10 MG PO DAILY Blood Clot Prevention #14 Ref 0 TAB Walker/Adult/Folding (Walker/Adult/Folding) 1 Mis Mis 1 EA .ROUTE DIRECTED #1 Ref 0 EA Sennosides-Docusate Sodium (Senna Plus 8.6-50 mg) 1 Tab Tab 1 TAB PO BID PRN CONSTIPATION #60 TAB Jas López MD Apr 13, 2016 12:44
--- NOTE | 2016-04-13 13:24 | PD.ORT.PN ---
Subjective Subjective Remarks Patient comfortable. Pain controlled. OOB sitting in recliner. Objective Vitals Vital Signs Date Time Temp Pulse Resp B/P Pulse Ox O2 Delivery O2 Flow Rate FiO2 04/13/16 10:22 96 21 04/13/16 08:00 96.1 75 20 101/56 98 04/13/16 04:00 97.5 68 18 95/50 100 04/13/16 00:00 96.0 72 16 107/57 98 04/12/16 23:02 98 21 04/12/16 20:00 97.6 79 16 104/63 100 04/12/16 16:00 97.1 70 16 109/65 99 I/O 04/12/16 04/12/16 04/12/16 04/13/16 04/13/16 04/13/16 07:00 15:00 23:00 07:00 15:00 23:00 Intake Total 0 ml 1140 ml 1176 ml 526 ml Output Total 300 ml 200 ml 650 ml Balance -300 ml 940 ml 1176 ml -124 ml Intake Oral 0 ml 240 ml 240 ml 240 ml IV Total 100 ml 936 ml 286 ml Other 800 ml Output Urine Total 300 ml 650 ml Estimated Blood Loss 200 ml # Voids 1 3 3 # Bowel Movements 0 2 0 Result Diagram: 04/11/16 1730 04/12/16 0459 Imaging Last 72 hours Impressions Tibia/Fibula X-Ray 04/11/16 0000 Signed Impressions: Service Date/Time: March 17:45 - CONCLUSION: Acute comminuted displaced fractures involving the mid shafts of the left tibia and fibula. Vimal Nugent MD Chest X-Ray 04/11/16 0000 Signed Impressions: Service Date/Time: March 17:50 - CONCLUSION: No acute disease. Vimal Nugent MD Objective Remarks Bilateral upper extremities: Full range of motion and neurovascularly intact Right lower extremity: Full range of motion and neurovascularly intact Left lower extremity: Splint intact. Distally intact sensation with good capillary refills. Compartments soft Assessment & Plan Ortho Post Op Day #: 1 Problem List: Assessment and Plan Left tibia shaft fracture--status post IM nail Toe-touch weightbearing Xarelto Elevate and ice Orthopedically stable for discharge. Discharge home Friday or Friday F/U with in office Jesus Patel Apr 13, 2016 13:24
[2016-04-13] MEDS ORDERED: XARE20TA PO (15:09)
== END 2016-04-13 17:00 | disposition home or self-care (01) | DRG 494 ==
LOC: NEPA 17:16 → NEDA 18:26 → N06A 20:38
PROVIDERS: ADMIT Hospitalist; ATTEND Hospitalist
PROC: 0QSH36Z Reposition Left Tibia with Intramedullary Internal Fixation Device, Percutaneous Approach (ICD-10-PCS; principal; 2016-04-12 10:21)
DX: S82.202A Unspecified fracture of shaft of left tibia, initial encounter for closed fracture (principal); S82.402A Unspecified fracture of shaft of left fibula, initial encounter for closed fracture; W11.XXXA Fall on and from ladder, initial encounter; Y92.9 Unspecified place or not applicable
CPT/HCPCS: 71010; 73590; 76000; 80053; 85025; 86850; 86900; 86901; 90471; 90686; 93005; 94150; 96361; 96374; 96375; C1713; C1769; G0008; J0131; J0690; J1580; J1885; J2175; J2250; J2270; J2370; J2405; J3010; J3370; J7030; J7050; J7120; Q2038